=== PATIENT | male | born 1965 | race Caucasian/White ===

== ENCOUNTER 2017-10-01 21:45 | Emergency (ER) | payer BC, OTHER ==
[~2017-10-01] VITALS: Ht 203.2 cm; Wt 111.1 kg
--- NOTE | ~2017-10-01 | EKG ---
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: [place] : 1965 Requested By: Gabbi Liang Order Number: [id number] MD: Herminio Jimenez Measurements Intervals [place] Rate: 131 P: [place]: QRS: 30 QRSD: 104 T: 241 QT: 278 QTc: 411 Interpretive Statements Atrial fibrillation Borderline repolarization abnormality No previous ECG available for comparison Electronically Signed On 10-02-2017 8:41:16 DATA ENTRY PROCESSOR by Herminio Jimenez [email or web address] <ELECTRONICALLY SIGNED> By: Herminio Jimenez MD, [facility] 10/02/17 0841 [id number] 2221 Herminio Jimenez MD, FACC /EPI
[2017-10-01] MEDS ORDERED: LIPITOR 20 MG T20 M1 PO (22:08)
[2017-10-01] MEDS ORDERED: CARDIZEM CD240 MG PO (22:09)
[2017-10-01] MEDS ORDERED: LEVAQUIN 500 M500 M2 PO (22:09)
[2017-10-01] MEDS ORDERED: SORINE 80 MG TA80 MG PO (22:10)
[2017-10-01] MEDS ORDERED: ELIQUIS5 MG PO (22:10)
[2017-10-01] MEDS ORDERED: PREDNISONE 10 M10 MG PO (22:10)
[2017-10-01] MEDS ORDERED: VENTOLIN HFA 1818 GM INH (22:11)
[2017-10-01] MEDS ORDERED: IRBESARTAN-HCT1 EAC1 PO (22:11)
[2017-10-01 22:45] LABS: ABSOLUTE NEUTROPHILS 12.5 thou/uL (1.4-8.2); BASOPHILS 0.3 % (0.0-2.0); EOSINOPHILS 0.1 % (0.0-3.0); HEMATOCRIT 40.3 % (42.0-52.0); LYMPHOCYTES 9.5 % (24.0-44.0); MCH 32.9 pg (26.0-34.0); MCHC 34.7 g/dL (28.0-37.0); MCV 94.8 fL (80.0-100.0); MONOCYTES 7.5 % (1.0-8.0); PLATELET COUNT 409 thou/uL (150-400); POLYS 82.6 % (36.0-66.0); RBC 4.25 mil/uL (4.50-6.00); RDW 12.8 % (10.5-14.5); WBC 15.1 thou/uL (4.0-11.0)
[2017-10-01 22:54] LABS: CALCIUM 9.1 mg/dL (8.5-10.1); POTASSIUM 3.4 mmol/L (3.5-5.1)
[2017-10-01] MEDS ORDERED: TUSSIONEX PENN115 ML PO (23:26)
[2017-10-01] MEDS ORDERED: CARDIZEM CD120 MG PO (23:26)
[2017-10-02 00:03] VITALS: BP 126/76
== END 2017-10-02 00:05 | disposition home or self-care (01) ==
LOC: ER 21:45
PROVIDERS: Emergency Medicine
DX: I48.91 Unspecified atrial fibrillation (principal); T37.8X5A Adverse effect of other specified systemic anti-infectives and antiparasitics, initial encounter; Y92.9 Unspecified place or not applicable; E87.6 Hypokalemia; D72.829 Elevated white blood cell count, unspecified; I10 Essential (primary) hypertension; Z88.8 Allergy status to other drugs, medicaments and biological substances

== ENCOUNTER → 2021-10-03 | Outpatient (CLI) | payer BC, OTHER ==
[~2021-10-03] MED LIST: CARDIZEM CD120 MG PO; CARDIZEM CD240 MG PO; ELIQUIS5 MG PO; IRBESARTAN-HCT1 EAC1 PO; LEVAQUIN 500 M500 M2 PO; LIPITOR 20 MG T20 M1 PO; PREDNISONE 10 M10 MG PO; SORINE 80 MG TA80 MG PO; TUSSIONEX PENN115 ML PO; VENTOLIN HFA 1818 GM INH
== END ==
LOC: SJCVCIMAG 10:53
PROVIDERS: ATTEND Internal Medicine
DX: I48.91 Unspecified atrial fibrillation (principal); R06.00 Dyspnea, unspecified; I25.10 Atherosclerotic heart disease of native coronary artery without angina pectoris; E78.5 Hyperlipidemia, unspecified; I10 Essential (primary) hypertension; Z82.49 Family history of ischemic heart disease and other diseases of the circulatory system; Z87.891 Personal history of nicotine dependence; Z72.89 Other problems related to lifestyle; Z88.8 Allergy status to other drugs, medicaments and biological substances; Z79.899 Other long term (current) drug therapy